=== PATIENT | male | born 1995 | race Caucasian/White ===

== ENCOUNTER 2017-02-13 19:34 | Emergency (ER) | payer OTHER ==
[2017-02-13 19:42] VITALS: TEMP 36.9; Ht 177.8 cm
[2017-02-13] MEDS ORDERED: [UNRECOGNIZED DRUG - OTHER] PO (19:56)
[2017-02-13] MEDS ORDERED: VITAMIN B PO (19:56)
--- NOTE | 2017-02-13 20:26 | DIAGNOSTIC IMAGING REPORT ---
RIGHT ANKLE MIN 3 VIEWS ROUTINE CLINICAL HISTORY: Right ankle pain status post trauma COMPARISON: None. DISCUSSION: There is lateral soft tissue swelling. No fractures or dislocations are visualized. There is an equivocal joint effusion. IMPRESSION: Soft tissue swelling. No fractures identified. Electronically signed by: Bryant Syed M.D. 02/13/2017 8:25 PM Dictated Date/Time: 02/13/2017 8:24 PM
--- NOTE | 2017-02-13 20:35 | EMERGENCY ROOM VISIT NOTE ---
ED Visit Note First contact with patient: 19:44 CHIEF COMPLAINT: Ankle pain HISTORY OF PRESENT ILLNESS: This 21-year-old male patient presents to the emergency department ambulatory after sustaining an injury to the right ankle and foot with a twisting, inversion motion just prior to arrival. The patient states that he was jumping and landed onto a branch, twisting the right ankle. The patient complains of pain along the outside of the ankle. The patient denies pain of the foot. The patient rates the pain as sharp and 6/10. The patient is not able to bear weight on the foot. Constant pain, worse with movement, weight bearing, and the dependent position. No knee pain, the patient is able to move their toes. No numbness or weakness of the foot, no laceration. The patient has not had a previous fracture to this ankle. The patient has taken no medication for the pain. The patient denies any other injury. REVIEW OF SYSTEMS: A 6 system review of systems was completed with positives and pertinent negatives listed in the HPI. ALLERGIES: No known drug allergies MEDICATIONS: No chronic medications PMH: No significant past medical history. SOCIAL HISTORY: The patient is a [employer] student and lives with roommates. PHYSICAL EXAM: Vital Signs: Reviewed Nurse's notes, vital signs stable. GENERAL : This is a 21-year-old male, no acute distress, but appears in pain, well- developed, well-nourished. MENTAL STATUS: Alert, oriented to person place and time, and cooperative. MUSCULOSKELETAL: The right ankle is swollen and tender over the lateral malleolus, but the skin is intact and there is no ligamentous instability. There is no fifth metatarsal tenderness. There is no tenderness over the rest of the foot. There is no calf or tibia/fibular tenderness. There is no visual deformity. The foot and toes are warm and well-perfused. Dorsalis pedis pulse 2+. Sensation to pain and light touch is intact. Capillary refill less than 2 seconds. RADIOGRAPHIC FINDINGS: RIGHT ANKLE MIN 3 VIEWS ROUTINE CLINICAL HISTORY: Right ankle pain status post trauma COMPARISON: None. DISCUSSION: There is lateral soft tissue swelling. No fractures or dislocations are visualized. There is an equivocal joint effusion. IMPRESSION: Soft tissue swelling. No fractures identified. EMERGENCY DEPARTMENT COURSE: I examined the patient. X-rays of the right ankle were reviewed by myself and read by radiology and reveal no acute fractures. Gel ankle splint was applied to the ankle under my direction and the position was satisfactory. Neurovascular status was rechecked and intact. The patient was instructed on the use of crutches. Conservative measures were discussed. He was given information for orthopedic follow-up for any persistent symptoms. He verbalized understanding of my assessment and treatment plan. The patient was discharged home in good condition. DIAGNOSIS: Right ankle sprain Current/Historical Medications Scheduled [Noctin], 1 TAB PO DAILY [Vitamin B], 1 TAB PO DAILY Allergies Coded Allergies: No Known Allergies (Unverified , 02/13/17) Vital Signs Date Time Temp Pulse Resp B/P Pulse Ox O2 Delivery O2 Flow Rate FiO2 02/13/17 20:42 79 16 117/69 96 Room Air 02/13/17 19:42 36.9 83 18 116/63 93 Room Air Departure Information Impression Primary Impression: Right ankle sprain Dispostion Home / Self-Care Condition GOOD Referrals [facility] (PCP) Girish Reynaga, DO Patient Instructions My [facility] Additional Instructions You have been treated in the Emergency Department for an Ankle sprain. For pain control, you can use the following [id number] medicines (if >12 yo): - Regular strength (325mg/tab) Tylenol (acetaminophen) 2 tabs every 4-6 hours as needed. Do not exceed 12 tablets in a 24 hour period. Avoid taking more than 4 grams (4000 mg) of Tylenol per day. This includes any other sources of acetaminophen you may take on a regular basis. - Regular strength (200 mg/tab) Advil (ibuprofen) 1-2 tabs every 4-6 hours as needed. Do not exceed a dose of 3200 mg per day. If this is a recent injury (<24 hrs), ice can be applied to the area of pain for the first 3 days to help decrease pain and inflammation. You have been provided the number for an Orthopaedic Surgeon. Follow up with orthopedics if there is persistent pain in 6-7 days. Keep the ankle brace/splint and use the crutches you have been provided to keep ALL weight off of the ankle until weight bearing is tolerable. Return to the Emergency Department if your current symptoms worsen despite treatment course outlined above, or if you develop any of the following symptoms : intractable pain despite aforementioned treatment course or new onset of numbness or tingling of the foot. Problem Qualifiers Primary Impression: Right ankle sprain Encounter type: initial encounter Involved ligament of ankle: unspecified ligament Qualified Codes: S93.401A - Sprain of unspecified ligament of right ankle, initial encounter
[2017-02-13 20:42] VITALS: BP 117/69; PULSE 79; O2SAT 96
== END 2017-02-13 20:52 | disposition home or self-care (01) ==
LOC: C.EDB 19:34 → C.EDD 20:52
DX: S93.401A Sprain of unspecified ligament of right ankle, initial encounter (principal); X50.1XXA Overexertion from prolonged static or awkward postures, initial encounter